=== PATIENT | male | born 1980 | race Caucasian/White ===

== ENCOUNTER 2024-07-06 10:08 | Inpatient (IN) | payer OTHER, SELFPAY ==
[2024-07-06] VITALS (44 sets, daily range): BP systolic 85–168; BP diastolic 7–100; PULSE 82–134; RESP 21–50; TEMP 32–38.4; O2SAT 83–105; BMI 47.9
--- NOTE | ~2024-07-06 | CT_ITS ---
EXAMINATION: CT ANGIOGRAM CHEST CLINICAL INFORMATION: Respiratory failure. Cardiac arrest, dyspnea before cardiac arrest. Intubated. COMPARISON: None available. TECHNIQUE: Multiple axial images were obtained through the chest after the administration of 80 mL of Omnipaque 350 intravenous contrast. Extensive vascular post-processing including two-dimensional and three-dimensional reformatted images were created and reviewed on an independent workstation. This CT examination was performed using dose optimization techniques as appropriate, variously including the following: *Automated exposure control *Adjustment of mA and/or kV according to patient size (this includes techniques or standardized protocols for targeted exams where dose is matched to indication/reason for exam; i.e. extremities or head) *Use of iterative reconstruction technique DLP: 552 mGy-cm FINDINGS: SUPPORT DEVICES: ET tube is positioned just encroaching into the right mainstem bronchus by 5 mm. Retraction of this device 3 cm recommended. NG tube is present, tip in the gastric antrum. This is well positioned. LUNGS: Somewhat limited by respiratory motion artifact. This limits detection of subtle findings. There are small layering pleural effusions with associated passive atelectasis in the abutting lung parenchyma. There is discoid atelectasis in the right midlung, also a small amount in the left midlung. There is vascular engorgement present. Bilateral patchy foci of groundglass attenuation are present with indicating mild interstitial and early alveolar pulmonary edema. Evaluation for nodules is limited by motion. Grossly no significant nodules seen. MEDIASTINUM: Contrast bolus opacification of the pulmonary arterial system is diagnostic. Study is limited by extensive respiratory motion artifact, which limits sensitivity of detection of subsegmental embolic disease. No evidence of central or segmental emboli seen. No evidence of right heart strain. There is evidence of right heart failure with contrast reflux into the IVC and hepatic veins. The main pulmonary artery is enlarged suggesting pulmonary arterial hypertension. There is edema throughout the mediastinal fat planes. There are enlarged low attenuating mediastinal lymph nodes, for example a right paratracheal node measures 1.5 cm in diameter (series 8, image 15). There are additional prevascular, subcarinal, and paratracheal lymph nodes which are enlarged and low attenuating. These are nonspecific but may be a result of chronic right heart failure. There is moderate cardiac enlargement, with predominantly RV and RA enlargement. No pericardial effusion. No evidence of acute aortic syndrome. The aorta is normal in caliber and course. CHEST WALL: No adenopathy or mass. There is diffuse edema in the fat planes consistent with gross anasarca. UPPER ABDOMEN: Diffuse fatty infiltration and hepatomegaly. No focal hepatic abnormality seen. Mild splenomegaly, with AP diameter of 14.5 cm. Mild periceliac edema, nonspecific. Mild adrenal hyperplasia bilaterally. NG tube in the stomach. CT/CT angio chest PE protocol IMPRESSION: 1. ET tube lies just within the right mainstem bronchus. Retraction 3 cm recommended. 2. Well-positioned NG tube. 3. Somewhat limited study for pulmonary embolus due to respiratory motion and patient motion, however no gross central or segmental embolus seen. 4. Moderate cardiomegaly, with evidence of right heart failure, small pleural effusions, low-attenuation mediastinal lymph nodes, mild interstitial pulmonary edema, and diffuse anasarca. 5. There is prominent contrast reflux into the hepatic veins consistent with right heart failure. 6. Patchy areas of atelectasis and mild interstitial/alveolar edema in the lung parenchyma. 7. Enlarged main pulmonary artery suggesting pulmonary arterial hypertension. 8. Hepatomegaly with diffuse fatty infiltration. Mild splenomegaly. Electronically signed by: Naveed Phelan MD 07/06/2024 02:08 PM [facility]
--- NOTE | ~2024-07-06 | CT_ITS ---
EXAMINATION: CT HEAD WITHOUT CONTRAST CLINICAL INFORMATION: Altered mental status, status post cardiac arrest COMPARISON: None available. TECHNIQUE: Contiguous axial imaging was performed from the skull base to vertex without intravenous administration of contrast. This CT examination was performed using dose optimization techniques as appropriate, variously including the following: *Automated exposure control *Adjustment of mA and/or kV according to patient size (this includes techniques or standardized protocols for targeted exams where dose is matched to indication/reason for exam; i.e. extremities or head) *Use of iterative reconstruction technique DLP: 839.57 mGy-cm FINDINGS: There is diffuse sulcal effacement of cerebrum and cerebellum, diffuse abnormal decrease in attenuation of the cerebral parenchyma, loss of franco-white matter differentiation. There is resulting relatively dense falx and tentorial borders There is no midline shift, no abnormal intra- or extra- axial fluid accumulation. Bone window images show no evidence of skull fracture. Small air-fluid level is seen in the left maxillary sinus. CT/CT head/brain wo IV con IMPRESSION: 1. Findings are suggestive of diffuse cytotoxic edema. 2. No intracranial hemorrhage or skull fracture is seen. Electronically signed by: Mary Horta MD 07/06/2024 01:54 PM EST
--- NOTE | ~2024-07-06 | XR_ITS ---
EXAMINATION: XR CHEST CLINICAL INFORMATION: shortness of breath, right sided pain; Intubation. COMPARISON: None available. TECHNIQUE: AP portable view of the chest was obtained. FINDINGS: Endotracheal tube is in place, with tip terminating approximately 2.7 cm above the french, well-positioned. A nasogastric tube appears coiled within the hypopharynx. Tip not seen. No additional support devices. Leads on the chest. There is moderate cardiomegaly. Mediastinal and hilar contours appear normal allowing for AP technique. Engorged vasculature are within the hilar regions and throughout both lungs without overt CHF. No focal consolidation. Linear atelectasis right midlung. Suspect small bilateral effusions with associated mild passive atelectasis. No pneumothorax. Bony and soft tissue structures appear normal. XR/XR chest 1V IMPRESSION: 1. Endotracheal tube in good position. 2. NG tube tip not seen, appears coiled in the hypopharynx. Correlate clinically. 3. Moderate cardiomegaly with vascular congestion throughout both lungs without overt CHF. Right midlung discoid atelectasis. 4. Small bilateral pleural effusions suspected. Electronically signed by: Naveed Phelan MD 07/06/2024 01:53 PM [facility] [place]
--- NOTE | ~2024-07-06 | XR_ITS ---
EXAMINATION: XR CHEST CLINICAL INFORMATION: Organ Donation - per [facility] COMPARISON: None available. TECHNIQUE: Frontal view of the chest was obtained. FINDINGS: The lungs are hypoexpanded with bibasilar streaky atelectasis. Heart size is enlarged with poor vascularity is normal. Position of endotracheal tube is 6.3 cm above the french. Enteric tube tip is in stomach. No gross bony abnormality. XR/XR chest 1V IMPRESSION: 1. Hypoexpanded lungs with bibasilar atelectasis. 2. Cardiomegaly. 3. Endotracheal tube and enteric tube are in satisfactory position. Electronically signed by: Carlos Farfan MD 07/09/2024 08:54 AM EST
--- NOTE | ~2024-07-06 | US_ITS ---
EXAMINATION: US ABDOMEN COMPLETE CLINICAL INFORMATION: [facility] request. COMPARISON: None available. TECHNIQUE: Real-time imaging of the abdominal viscera. FINDINGS: PANCREAS: Visualized portions are unremarkable. ABDOMINAL AORTA: The proximal segment is normal in caliber. The mid and distal segments are obscured by overlying bowel gas. INFERIOR VENA CAVA: The proximal segment normal. The mid and distal segments are obscured by overlying bowel gas. LIVER: The liver is normal in size. The liver contour is normal. Parenchymal echogenicity is normal. No focal hepatic lesion. There is no intrahepatic biliary duct dilatation seen. GALLBLADDER: The gallbladder is physiologically distended without evidence of stones, sludge, polyps, wall thickening or pericholecystic fluid. COMMON BILE DUCT: Normal in caliber measuring 0.3 cm in diameter. RIGHT KIDNEY: No hydronephrosis. No renal calculi or focal parenchymal lesions. The kidney measures 11.0 cm in maximum dimension. LEFT KIDNEY: No hydronephrosis. No renal calculi or focal parenchymal lesions. The kidney measures 11.6 cm in maximum dimension. SPLEEN: The spleen measures 12.8 cm in maximum dimension. FREE FLUID: None. US/US abdomen complete IMPRESSION: Unremarkable abdominal ultrasound. Electronically signed by: Argenis Mei MD 07/09/2024 01:53 PM EST
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
--- NOTE | 2024-07-06 10:33 | ECG_ITS ---
Test Reason : CARDIAC ARREST Blood Pressure : / mmHG Vent. Rate : 108 BPM Atrial Rate : 107 BPM P-R Int : 138 ms QRS Dur : 086 ms QT Int : 278 ms P-R-T Axes : 171 -69 079 degrees QTc Int : 372 ms Wide complex rhythm suspect electrolyte/metabolic issues Left axis deviation Abnormal ECG No previous ECGs available Referred By: Kiko Pena Electronically Signed By:Avinash Mercado
--- NOTE | 2024-07-06 10:34 | ECG_ITS ---
Test Reason : CARDIAC ARREST Blood Pressure : / mmHG Vent. Rate : 112 BPM Atrial Rate : 060 BPM P-R Int : 196 ms QRS Dur : 094 ms QT Int : 302 ms P-R-T Axes : 019 -74 094 degrees QTc Int : 412 ms Wide complex rhythm Suspect hyperkalemia/metabolic issues Left axis deviation Abnormal ECG When compared with ECG of 06-JUL-2024 10:33, No significant changes seen Referred By: Kiko Pena Electronically Signed By:Avinash Mercado
--- NOTE | 2024-07-06 10:35 | ECG_ITS ---
Test Reason : CARDIAC ARREST Blood Pressure : / mmHG Vent. Rate : 091 BPM Atrial Rate : 091 BPM P-R Int : 184 ms QRS Dur : 082 ms QT Int : 428 ms P-R-T Axes : 000 -81 024 degrees QTc Int : 526 ms Wide complex rhythm Left axis deviation Low voltage QRS Prolonged QT Abnormal ECG When compared with ECG of 06-JUL-2024 10:34, No significant changes seen Referred By: Kiko Pena Electronically Signed By:Avinash Mercado
[2024-07-06] MEDS: Norepinephrine Bitartrate/D5W 8 MG/250 ML PLAST..BAG 14.6 MG IVCONT (10:42)
--- NOTE | 2024-07-06 10:42 | ECG_ITS ---
Test Reason : CARDIAC ARREST Blood Pressure : / mmHG Vent. Rate : 093 BPM Atrial Rate : 087 BPM P-R Int : 164 ms QRS Dur : 106 ms QT Int : 480 ms P-R-T Axes : 054 268 054 degrees QTc Int : 596 ms Poor data quality, interpretation may be adversely affected Wide complex rhythm consider hyperkalemia Prolonged QT Abnormal ECG When compared with ECG of 06-JUL-2024 10:35, No significant changes seen Referred By: Kiko Pena Electronically Signed By:Avinash Mercado
--- NOTE | 2024-07-06 10:43 | ECG_ITS ---
Test Reason : CARDIAC ARREST Blood Pressure : / mmHG Vent. Rate : 086 BPM Atrial Rate : 086 BPM P-R Int : 178 ms QRS Dur : 096 ms QT Int : 466 ms P-R-T Axes : 071 268 047 degrees QTc Int : 557 ms Normal sinus rhythm with sinus arrhythmia Wide QRS-consider hyperkalemia Prolonged QT Abnormal ECG When compared with ECG of 06-JUL-2024 10:42, No significant changes seen Referred By: Kiko Pena Electronically Signed By:Avinash Mercado
--- NOTE | 2024-07-06 10:45 | ECG_ITS ---
Test Reason : CARDIAC ARREST Blood Pressure : / mmHG Vent. Rate : 081 BPM Atrial Rate : 087 BPM P-R Int : 226 ms QRS Dur : 162 ms QT Int : 440 ms P-R-T Axes : 040 233 018 degrees QTc Int : 511 ms Sinus rhythm with sinus arrhythmia with 1st degree A-V block Right bundle branch block Septal infarct , age undetermined Inferior infarct (cited on or before 06-JUL-2024) T wave abnormality, consider lateral ischemia Abnormal ECG When compared with ECG of 06-JUL-2024 10:43, WA interval has increased Right bundle branch block is now Present Borderline criteria for Lateral infarct are no longer Present Referred By: Kiko Pena Electronically Signed By:Avinash Mercado
--- NOTE | 2024-07-06 10:48 | ECG_ITS ---
Test Reason : CARDIAC ARREST Blood Pressure : / mmHG Vent. Rate : 079 BPM Atrial Rate : 079 BPM P-R Int : 204 ms QRS Dur : 172 ms QT Int : 410 ms P-R-T Axes : 036 213 010 degrees QTc Int : 470 ms Normal sinus rhythm Right bundle branch block Septal infarct (cited on or before 06-JUL-2024) Inferior infarct (cited on or before 06-JUL-2024) Abnormal ECG When compared with ECG of 06-JUL-2024 10:45, Serial changes of Septal infarct Present Referred By: Kiko Pena Electronically Signed By:Avinash Mercado
--- NOTE | 2024-07-06 10:55 | ECG_ITS ---
Test Reason : CARDIAC ARREST Blood Pressure : / mmHG Vent. Rate : 081 BPM Atrial Rate : 081 BPM P-R Int : 170 ms QRS Dur : 156 ms QT Int : 386 ms P-R-T Axes : 063 202 011 degrees QTc Int : 448 ms Normal sinus rhythm Right bundle branch block Abnormal ECG When compared with ECG of 06-JUL-2024 10:48, Criteria for Septal infarct are no longer Present Serial changes of Inferior infarct Present Referred By: Kiko Pena Electronically Signed By:Avinash Mercado
--- NOTE | 2024-07-06 10:58 | ECG_ITS ---
Test Reason : CARDIAC ARREST Blood Pressure : / mmHG Vent. Rate : 083 BPM Atrial Rate : 083 BPM P-R Int : 166 ms QRS Dur : 156 ms QT Int : 386 ms P-R-T Axes : 066 200 010 degrees QTc Int : 453 ms Sinus rhythm with Fusion complexes Right bundle branch block Abnormal ECG When compared with ECG of 06-JUL-2024 10:55, Fusion complexes are now Present Referred By: Kiko Pena Electronically Signed By:Avinash Mercado
[2024-07-06] MEDS: Amiodarone HCL 900 MG in 0.9 % Sodium Chloride 500 ML 34.53 MG IVCONT (11:00)
--- NOTE | 2024-07-06 11:08 | PC.RT ---
Pt came in via EMS in active cardiac arrest. Pt was intubated in the field by EMS w/ 8.0 ETT sitting 27cm @lips. Pt skin pale, blue, and dusky. SATs reading between 40's-60's w/ bag ventilation 100% FIO2. CPR and ACLS level care being provided to pt by ER staff. RT assessed chest rise and bilateral breath sounds, loud breath sounds noted on the right with diminished sounds on the left. Pt abdomen severely distended and hilda w/ breaths. MD placed NG tube w/ scant amount of blood returned, no improvement in ventilation status. RT pulled ETT back to 24 cm @ lip. Loud bilateral breath sounds noted post move. SATs improved to 80's-90's. Albuterol 10mg given through ETT per MD request. After staff noted ROSC, Pt was placed on mechanical ventilation as documented. Pt ernst well. Will continue to monitor.
--- NOTE | 2024-07-06 11:12 | ECG_ITS ---
Test Reason : CARDIAC ARREST Blood Pressure : / mmHG Vent. Rate : 091 BPM Atrial Rate : 091 BPM P-R Int : 138 ms QRS Dur : 104 ms QT Int : 342 ms P-R-T Axes : 063 161 036 degrees QTc Int : 420 ms Normal sinus rhythm Right axis deviation Pulmonary disease pattern Abnormal ECG When compared with ECG of 06-JUL-2024 10:58, Fusion complexes are no longer Present Right bundle branch block is no longer Present Referred By: Kiko Pena Electronically Signed By:Avinash Mercado
[2024-07-06 11:14] LABS: Hematocrit 48.7 % (42.0-52.0); Hemoglobin 15.1 g/dl (14.0-18.0); Mean Corpuscular Hemoglobin 32.2 pg (27.0-33.0); Mean Corpuscular Volume 103.8 fL (80.0-98.0); Mean Platelet Volume 10.8 fL (9.4-12.4); Platelet Count 217 X10*3/uL (160-400); Red Blood Count 4.69 X10*6/uL (4.60-5.80); Red Cell Distribution Width 16.5 % (11.0-16.0)
[2024-07-06 11:15] LABS: NRBC Pct Auto 2.3 /100WBC (0.0-0.2); WBC ABN SCTR FOR CBC 1
[2024-07-06 11:22] LABS: Venous Blood Gas Refer to POC result
[2024-07-06 11:23] LABS: Baso%MD 0.9 %; Eos%MD 0.3 %; IG%MD 11.7 %; Mono%MD 5.9 %; Neut%MD 61.2 %; White Blood Count 13.6 X10*3/uL (4.8-10.8)
[2024-07-06 11:23] LABS: VBG Base Excess -14.7 mmol/L; VBG HCO3 20 mmol/L (22-26); VBG pCO2 100 mmHg; VBG pH 6.91 (7.32-7.43); VBG pO2 76 mmHg
[2024-07-06 11:29] LABS: INTERNATIONAL NORM RATIO 1.3 (0.9-1.1); Prothrombin Time 15.7 SEC (10.9-12.4)
[2024-07-06 11:30] LABS: Lactic Acid 12.5 mmol/L (0.5-2.0)
[2024-07-06] MEDS: fentaNYL citrate/NS 1,000 MCG/100 ML PLAST..BAG 2.5 MCG IVCONT (11:30)
[2024-07-06 11:32] LABS: Appearance Urine Clear; Color Urine Dark Yellow; Glucose Urine UA Negative (Negative); Leukocyte Esterase Urine Negative (Negative); Nitrite Urine Negative (Negative); Specific Gravity - Urine 1.025 (1.005-1.025); UMIC TRIGGER UACC YES; Urine Blood Small (1+) (Negative); Urine Ketones 15 mg/dL (Negative); Urine Protein 100 (2+) mg/dL (Neg-Trace)
[2024-07-06 11:41] LABS: Amphetamine Screen Urine Not Detected (Not Detect); Barbiturates, Urine Not Detected (Not Detect); Benzodiazepines Screen Urine Not Detected (Not Detect); Buprenorphine Scr Not Detected (Not Detect); Cannabinoid Screen Urine Not Detected (Not Detect); Cocaine Screen Urine Not Detected (Not Detect); Fentanyl, urine Not Detected (Not Detect); Methadone Screen, Urine Positive (Not Detect); Opiate Screen Urine Not Detected (Not Detect); Oxycodone Screen Urine Not Detected (Not Detect); Phencyclidine Screen Urine Not Detected (Not Detect)
[2024-07-06 11:42] LABS: Bacteria Urine None Seen (None Seen); Squamous Epithelial Cell Urine 0-2 /HPF (0-2); WBC Urine 0-5 /HPF (0-5)
[2024-07-06 11:45] LABS: Neutrophils Percent Manual 67 % (45-73)
[2024-07-06] MEDS: Lactated Ringers 1,000 ML 999 ML IV (11:45)
[2024-07-06 11:46] LABS: Troponin-I High Sensitivity 65.6 ng/L (<3.5-35.0)
[2024-07-06 11:48] LABS: Atypical Lymph Absolute Manual 0.1 x10*3/uL; Atypical Lymphs Percent Manual 1 % (0-6); Band Neutrophils Percent 11 % (3-5); Lymphocytes Absolute Manual 1.5 X10*3/uL (1.2-4.9); Lymphocytes Percent Manual 11 % (20-40); Metamyelocytes Absolute 0.8 X10*3/uL; Metamyelocytes Percent 6 %; Monocytes Absolute Manual 0.5 X10*3/uL (0.1-1.2); Monocytes Percent Manual 4 % (2-11); Neutrophils Absolute Manual 10.6 X10*3/uL (2.0-8.3); Nucleated Red Blood Cells 2 /100WBC (0-0)
[2024-07-06 11:49] LABS: Macrocytosis 2+ (15-30) /OIF; Platelet Estimate NORMAL (NORMAL); Platelet Morphology Comment NORMAL; RBC Morphology NOTED
[2024-07-06 11:51] LABS: Alanine Aminotransferase 212 U/L (0-40); Albumin Level 3.2 g/dL (3.5-5.0); Alkaline Phosphatase 191 U/L (39-117); Anion Gap 25 (12-20); Aspartate Amino Transferase 373 U/L (5-37); Bilirubin Direct 0.7 mg/dL (0.0-0.5); Bilirubin Total 1.5 mg/dL (0.0-1.0); Blood Urea Nitrogen 11 mg/dL (9-16); Calcium 9.7 mg/dL (8.4-10.2); Carbon Dioxide 22 mmol/L (22-29); Chloride 85 mmol/L (96-108); Creatinine Clr Calc Pharmacy 176.8; Estimated Glomerular Filt Rate > 60; Ethanol < 10 mg/dL; Glucose Random 81 mg/dL (60-115); Lipase 21 U/L (8-78); Magnesium 3.8 mg/dL (1.6-2.6); Potassium 5.1 mmol/L (3.3-5.1); Sodium 127 mmol/L (135-145); Total Protein 6.1 g/dL (6.5-8.0)
[2024-07-06 12:16] LABS: Glucose, Whole Blood 109 mg/dL (60-115)
[2024-07-06] MEDS: Midazolam HCl/NS 50 MG/50 ML PLAST..BAG IVCONT ×2 (12:30→12:53)
[2024-07-06] MEDS: iohexoL 350 MG/ML 100 ML INFUS..BTL IV (12:46)
[2024-07-06] MEDS: Midazolam HCl/PF 2 MG/2 ML VIAL 4 MG IVPUSH (12:54)
[2024-07-06 13:06] LABS: Reflex Lactate? Lactic Acid Added
[2024-07-06 13:15] LABS: ABG Base Excess -5.3 mmol/L; ABG HCO3 25 mmol/L (22-26); ABG pCO2 74 mmHg (32-45); ABG pH 7.14 (7.35-7.45); ABG pO2 110 mmHg (83-108)
[2024-07-06] MEDS: propofoL 1,000 MG/100 ML VIAL 28.03 MG IVCONT (13:26)
[2024-07-06] MEDS: Albuterol Sulfate 7.5 MG, Albuterol/Iprat 2.5/0.5MG 3 ML 3 ML INHALE (13:43)
[2024-07-06] MEDS: Piperacillin Sodium/Tazobactam 4.5 GM in 0.9 % Sodium Chloride 100 ML IV (14:04)
[2024-07-06 14:51] LABS: ~Lactic Acid-LAB USE ONLY 5.9 mmol/L (0.5-2.0)
--- NOTE | 2024-07-06 15:12 | PC.NURSE ---
Pt comes to ED via EMS as cardiac arrest from Methadone clinic. Active CPR upon arrival. Please see Resuscitation Report in Pts hard chart for details leading up to ROSC. Upon stabilization, Femoral Central Line placed by Dr. Pena. Blood labs drawn and sent for processing. Merida catheter placed--urine spec collected and sent for analysis. Continuous VS monitoring in place. Xray to beside for imaging. This RN, DEXTER Guzman, and RT accompany Pt to CT for imaging--no complications. Please refer to MAR for medications administered and correlating titrations. Pts mother arrives to facility; Dr. Pena meets with to discuss Pts status. Pt remains in ED under constant pheresis nurse. Pt transported to ICU with DEXTER Ansari, DEXTER Guzman, RT, and Transport
--- NOTE | 2024-07-06 15:12 | PHA.MEDREC ---
Addendum entered by Charmaine Su RPh 07/06/24 15:33: Med rec reviewed by [facility]. Original Note: Pharmacy Consult ? Medication Reconciliation Pharmacy has completed the medication reconciliation. Spoke with patients mother and she was able to confirm that the patient is only taking Ibuprofen 200mg tabs 3 tabs daily and Tylenol 500mg tabs 1 tab daily. She also states he is taking Methadone and they were at the methadone clinic today when the patient had his episode but she does not the dose of what he is taking only knows that Its a higher dose . She confirmed her son took his medications last night and didn't take any today that she knows of.
[2024-07-06] MEDS: Lidocaine HCl/PF 100 MG/5 ML SYRINGE 90 MG IV (15:28)
[2024-07-06] MEDS: propofoL 1,000 MG/100 ML VIAL 37.37 MG IVCONT ×4 (15:40→23:43)
[2024-07-06] MEDS: Cisatracurium Besylate 20 MG/10 ML VIAL IVPUSH (15:43)
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
[2024-07-06 16:13] LABS: Reflex Lactate? 2 Y
[2024-07-06 16:19] LABS: MANUAL DIFF FLAG NO
[2024-07-06 16:22] LABS: Basophils Absolute Auto 0.1 X10*3/uL (0.0-0.2); Basophils Percent Auto 0.3 % (0-2); Eosinophils Percent Auto 0.1 % (0-4); Hematocrit 42.7 % (42.0-52.0); Imm Gran Abs Auto 0.44 X10*3/uL (0.00-0.03); Imm Gran Pct Auto 2.2 % (0.0-0.4); Lymphocytes Absolute Auto 0.8 X10*3/uL (1.2-4.9); Lymphocytes Percent Auto 3.9 % (20-40); Mean Corpuscular HGB Conc 32.8 g/dl (31.0-36.0); Mean Corpuscular Hemoglobin 32.3 pg (27.0-33.0); Mean Corpuscular Volume 98.6 fL (80.0-98.0); Monocytes Absolute Auto 1.2 X10*3/uL (0.1-1.2); Monocytes Percent Auto 5.9 % (2-11); NRBC Pct Auto 0.6 /100WBC (0.0-0.2); Neutrophils Absolute Auto 17.3 x10*3/uL (2.0-8.3); Neutrophils Percent Auto 87.6 % (45-73); Platelet Count 214 X10*3/uL (160-400); Red Blood Count 4.33 X10*6/uL (4.60-5.80); Red Cell Distribution Width 16.2 % (11.0-16.0); White Blood Count 19.7 X10*3/uL (4.8-10.8)
[2024-07-06 16:25] LABS: VBG Base Excess 5.9 mmol/L; VBG HCO3 37 mmol/L (22-26); VBG pCO2 89 mmHg; VBG pH 7.22 (7.32-7.43); VBG pO2 58 mmHg
[2024-07-06 16:27] LABS: Venous Blood Gas Refer to POC result
[2024-07-06 16:40] LABS: Alanine Aminotransferase 700 U/L (0-40); Albumin Level 2.9 g/dL (3.5-5.0); Alkaline Phosphatase 205 U/L (39-117); Anion Gap 20 (12-20); Aspartate Amino Transferase 1576 U/L (5-37); Bilirubin Total 2.1 mg/dL (0.0-1.0); Blood Urea Nitrogen 15 mg/dL (9-16); Calcium 8.3 mg/dL (8.4-10.2); Carbon Dioxide 26 mmol/L (22-29); Chloride 83 mmol/L (96-108); Estimated Glomerular Filt Rate > 60; Glucose Random 138 mg/dL (60-115); Magnesium 2.3 mg/dL (1.6-2.6); Phosphorus 5.6 mg/dL (2.7-4.5); Potassium 4.5 mmol/L (3.3-5.1); Sodium 124 mmol/L (135-145); Total Protein 5.5 g/dL (6.5-8.0)
[2024-07-06 16:43] LABS: B Type Natriuretic Peptide 660 pg/mL (<100)
[2024-07-06 16:50] LABS: Lactic Acid 6.4 mmol/L (0.5-2.0)
[2024-07-06 17:05] LABS: Troponin-I High Sensitivity 11747.8 ng/L (<3.5-35.0)
[2024-07-06 17:47] LABS: ~Lactic Acid-LAB USE ONLY 6.1 mmol/L (0.5-2.0)
[2024-07-06 18:18] LABS: Reflex Lactate? Lactic Acid Added
[2024-07-06 19:09] LABS: ~Lactic Acid-LAB USE ONLY 5.5 mmol/L (0.5-2.0)
[2024-07-06] MEDS: vancomycin/NS 2,000 MG/500 ML PLAST..BAG 250 MG IV (19:31)
[2024-07-06 20:04] LABS: VBG Base Excess 2.5 mmol/L; VBG HCO3 28 mmol/L (22-26); VBG pCO2 45 mmHg; VBG pH 7.39 (7.32-7.43); VBG pO2 40 mmHg
[2024-07-06 20:04] LABS: Venous Blood Gas Refer to POC result
--- NOTE | 2024-07-06 20:32 | HO.HCP_ITS ---
Health Care Proxy Invocation Health Care Proxy Declaration: I, _Herbie Hightower , on the date cited below, have determined that, __Lv Lipscomb__, lacks the capacity to make or communicate, informed health care decision. This determination is made in accordance with accepted standards of medical judgment and pursuant to [place] 201[place], the [place] Health Care Proxy Law. The cause, nature, extent and probable duration of the patient's inapacity are described below: Cause: Intubated post Cardiac arrest with successful, but prolonged resuscitation, cerebral edema Nature:Organic,post cardiac arrest Extent:severe Probable Duration of Patient's Incapacity: unable to determine
--- NOTE | 2024-07-06 20:37 | PM.EVENT ---
Documented by User: Herbie Hightower NP 07/06/24 20:40 Event Note Date of Service: 07/06/24 Event Note: Patient mother/ HCP Karina Lipscomb and sister Elise at bedside, earlier attending Dr Martin had informed them of patient clinical status and goals of care. They both have decided to change code status to DNR. Code status changed to reflect family wishes. Time Spent With Patient Time: Total time managing care of this patient today ____ minutes. Documented by User: Billy Martin MD 07/09/24 10:21 Event Note Date of Service: 07/09/24
[2024-07-06 20:44] LABS: Reflex Lactate? 2 Y
[2024-07-06] MEDS: Heparin Sodium,Porcine 5,000 UNIT/ML VIAL 5000 UNIT SUBCUT (21:13)
[2024-07-06] MEDS: Chlorhexidine Gluc Oral Rinse 15 ML MOUTHWASH BUCCAL (21:13)
[2024-07-06 21:42] LABS: Cancel Lactic Acid Canceled
[2024-07-06] MEDS: Furosemide 40 MG/4 ML VIAL IVPUSH (22:42)
[2024-07-06] MEDS: Midazolam HCl/PF 2 MG/2 ML VIAL IVPUSH (22:47)
[2024-07-06 23:01] LABS: VBG HCO3 31 mmol/L (22-26); VBG pCO2 52 mmHg; VBG pH 7.38 (7.32-7.43); VBG pO2 33 mmHg
[2024-07-06] MEDS: Acetaminophen 1,000 MG/100 ML PIGGYBACK 400 MG IV (23:26)
[2024-07-06] MEDS: Norepinephrine Bitartrate/D5W 8 MG/250 ML PLAST..BAG 37.95 MG IVCONT (23:44)
[2024-07-06 23:53] LABS: Venous Blood Gas Refer to POC result
[2024-07-07] VITALS (35 sets, daily range): BP systolic 106–134; BP diastolic 54–74; PULSE 78–98; RESP 20–25; TEMP 34.7–39.6; O2SAT 88–94; BMI 47.8
--- NOTE | 2024-07-07 01:06 | HO.SKINPHOTO ---
Location: R Foot Category: Stage: Length: Width: Depth: cm Location: L Foot Category: Stage: Length: Width: Depth: cm
[2024-07-07] MEDS: propofoL 1,000 MG/100 ML VIAL 37.37 MG IVCONT ×3 (02:26→07:03)
[2024-07-07] MEDS: Norepinephrine Bitartrate/D5W 8 MG/250 ML PLAST..BAG 37.95 MG IVCONT (05:28)
[2024-07-07] MEDS: Heparin Sodium,Porcine 5,000 UNIT/ML VIAL 5000 UNIT SUBCUT ×3 (05:28→20:30)
[2024-07-07 05:29] LABS: MANUAL DIFF FLAG NO
[2024-07-07 05:31] LABS: Basophils Percent Auto 0.2 % (0-2); Eosinophils Percent Auto 0.1 % (0-4); Hematocrit 41.1 % (42.0-52.0); Hemoglobin 14.1 g/dl (14.0-18.0); Imm Gran Abs Auto 0.12 X10*3/uL (0.00-0.03); Imm Gran Pct Auto 0.8 % (0.0-0.4); Lymphocytes Absolute Auto 2.7 X10*3/uL (1.2-4.9); Lymphocytes Percent Auto 18.1 % (20-40); Mean Corpuscular HGB Conc 34.3 g/dl (31.0-36.0); Mean Corpuscular Hemoglobin 32.4 pg (27.0-33.0); Mean Corpuscular Volume 94.5 fL (80.0-98.0); Mean Platelet Volume 10.3 fL (9.4-12.4); Monocytes Absolute Auto 0.8 X10*3/uL (0.1-1.2); Monocytes Percent Auto 5.1 % (2-11); Neutrophils Absolute Auto 11.1 x10*3/uL (2.0-8.3); Neutrophils Percent Auto 75.7 % (45-73); Platelet Count 226 X10*3/uL (160-400); Red Blood Count 4.35 X10*6/uL (4.60-5.80); White Blood Count 14.7 X10*3/uL (4.8-10.8)
[2024-07-07 05:31] LABS: Venous Blood Gas Refer to POC result
[2024-07-07 05:45] LABS: VBG HCO3 38 mmol/L (22-26); VBG pCO2 54 mmHg; VBG pH 7.45 (7.32-7.43); VBG pO2 45 mmHg
[2024-07-07 05:52] LABS: Alanine Aminotransferase 794 U/L (0-40); Albumin Level 2.6 g/dL (3.5-5.0); Alkaline Phosphatase 189 U/L (39-117); Anion Gap 17 (12-20); Aspartate Amino Transferase 1670 U/L (5-37); Bilirubin Total 1.1 mg/dL (0.0-1.0); Blood Urea Nitrogen 22 mg/dL (9-16); Carbon Dioxide 26 mmol/L (22-29); Chloride 83 mmol/L (96-108); Creatinine Clr Calc Pharmacy 70.9; Estimated Glomerular Filt Rate 36; Glucose Random 95 mg/dL (60-115); Magnesium 1.9 mg/dL (1.6-2.6); Phosphorus 1.4 mg/dL (2.7-4.5); Potassium 4.5 mmol/L (3.3-5.1); Sodium 121 mmol/L (135-145); Total Protein 5.1 g/dL (6.5-8.0)
--- NOTE | 2024-07-07 06:09 | PC.NURSE ---
2229 - when turning and repositioning pt, spO2 dropping to 70s requiring manual bagging - RT and RESHIPPING CLERK at bedside 2244 - placed back on vent, settings adjusted by RT, peep increased to 15, spO2 continues at 85-86% - see vent assessment. Lasix 40 mg administered with no effect, pt anuric - RESHIPPING CLERK aware?
--- NOTE | 2024-07-07 07:00 | CA_ITS ---
Transthoracic Echocardiogram Patient (Last, First, Middle): Lv Lipscomb T Gender: Male Date of : 1980 Age: 43 Procedure Date: 07/07/2024 Procedure Type: Transthoracic Echocardiogram Location: ICU Height: 162.56 cm Weight: 155.58 kg BSA: 2.46 m2 Heart Rate: 93 bpm BP: 121 / 62 mmHg Manager Food Safety: SB Referring MD: Billy Martin MD Symptoms: Status post cardiac arrest Study Quality: Fair ECG Rhythm: Sinus Conclusions: - Normal left ventricular size and systolic function. The visually estimated ejection fraction is between 55-60%. Regional wall motion abnormalities can not be excluded due to suboptimal endocardial definition. Diastolic function is indeterminate on the basis of available data. - Severely increased right ventricular cavity size. There is severely decreased right ventricular systolic function. - Significantly elevated right atrial pressure. Findings Procedure Information Contrast agent, definity, is being given per protocol without apparent complications. The quality of the study was technically difficult. The study quality is limited by patients body habitus and lung artifact. Left Ventricle Normal left ventricular size and systolic function. The visually estimated ejection fraction is between 55-60%. Regional wall motion abnormalities can not be excluded due to suboptimal endocardial definition. Diastolic function is indeterminate on the basis of available data. Right Ventricle Severely increased right ventricular cavity size. There is severely decreased right ventricular systolic function. Atria The left atrium is likely dilated. The right atrium is moderately dilated. Aortic Valve Normal aortic valve structure and function. There is no aortic valve stenosis. There is no aortic valve regurgitation. Mitral Valve Likely normal mitral valve structure and function. There is no mitral valve regurgitation. There is no mitral valve stenosis. Pulmonic Valve The pulmonic valve was not well visualized. Tricuspid Valve The tricuspid valve was not well visualized. Tricuspid regurgitation envelope is inadequate for calculation of right ventricular systolic pressure. Significantly elevated right atrial pressure. Great Vessels The aorta was not well visualized. The visualized portions of the pulmonary artery and branches are normal. Venous The inferior vena cava is dilated and does not collapse with inspiration. Pericardium/Pleural There is no evidence of pericardial effusion. Prior Study Comparison No prior study available for comparison. Measurements 2D Linear Measurements IVSd: 1.29 0.6-0.9/0.6-1.0 cm LVIDd: 4.96 3.9-5.3/4.2-5.9 cm LVIDd Index: 2.02 2.4-3.2/2.2-3.1 cm/m2 LVIDs: 3.58 2.0-3.6 cm LVPWd: 0.62 0.7-1.1 cm LA Diam: 3.90 2.7-3.8/3.0-4.0 cm LAIDs Index: 1.59 1.5-2.3 cm/m2 LV Mass: 209.87 67-162/88-224 g LV Mass Index: 85.31 43-95/49-115 g/m2 LVOT Diam: 2.10 3.0+(-)1.3 cm 2D Systolic Function EF 4C: 35.90 >55% EF 2C: 57.90 >55% EF BiP: 45.90 >55% Mitral Valve MV Pk E: 0.42 MV PK A: 0.59 MV Decel Time: 194.00 E/A: 0.70 E'Lateral: 5.98 E'Medial: 3.15 E/E' Med: 13.50 E/E' Lat: 7.10 PHT: 57.00 MVA PHT: 3.86 Decel Gordon: 2.19 Aortic Valve AoV Pk Familia: 1.12 AoV Pk Grad: 5.00 KASH: 2.80 LVOT LVOT Pk Familia: 0.84 LVOT Mn Familia: 0.66 LVOT VTI: 0.12 LVOT Pk Grad: 3.00 LVOT Mn Grad: 2.00 LVOT Diam: 2.10 LVOT Area: 3.46 Diastolic Function MV Pk E: 0.42 MV Pk A: 0.59 E/A: 0.70 E'Medial: 3.15 E/E' Med: 13.50 E' Laterial: 5.98 E/E' Lat: 7.10 Right Ventricle TAPSE (mm): 11.80 TVS' Familia: 8.67 Tricuspid Valve RA Press: 15.00 Great Vessels Aorta Sinus of Valsalva: 2.90 2.0-3.5 cm Ao Asc: 3.00 2.1-3.4 cm Pulmonary Valve PV Pk Familia: 0.97 Peak PV Grad: 4.00 Updated in Other Vendor System with Status of Final Avinash Mercado MD electronically signed on 07/07/2024 2:47:39 PM with status of Final
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
[2024-07-07] MEDS: Calcium Chloride 1 GM/10 ML SYRINGE IVPUSH (08:43)
[2024-07-07] MEDS: Sodium Bicarbonate 8.4% 50 MEQ/50 ML SYRINGE IVPUSH (08:43)
[2024-07-07] MEDS: Albumin Human 25 % 50 ML 100 ML IV (08:44)
[2024-07-07] MEDS: Potassium Phosphate/NS 15 MMOL/250 ML PLAST..BAG 62.5 MMOL IV (08:44)
[2024-07-07] MEDS: Famotidine/PF 20 MG/2 ML VIAL IVPUSH (08:45)
[2024-07-07] MEDS: Chlorhexidine Gluc Oral Rinse 15 ML MOUTHWASH BUCCAL ×3 (08:45→20:31)
--- NOTE | 2024-07-07 09:16 | P.CDIM_ITS ---
PROVIDER RESPONSE TEXT: To clarify, the appropriate diagnosis supported by the clinical indicators: Hyponatremia: Probable QUERY TEXT: PHYSICIAN'S DOCUMENTATION REQUEST Date of Query: 07/07/2024 09:07 AM EST Patient Name: Lv Lipscomb Admit Date: 07/06/2024 Dear Stefanie Guerra MD, A review of the medical record indicates additional documentation may be needed. Please review below and update the documentation accordingly. Clinical Indicators: LABS: sodium 121 L fluids Based on the above, is there a diagnosis that correlates with these findings: Hyponatremia possible, probable, suspected etc. Labs indicate a diagnosis of (please specify) Other (explain) Clinically unable to determine (explain) Thank you, Jennifer Grijalva, CCS, CDIS Use of terms such as suspected, likely, concern for, or probable (associated with a specific diagnosi s that is being evaluated, monitored, or treated as if it exists) are acceptable and can be coded in the inpatient se tting, when documented at the time of discharge. Please use your independent medical judgment in providing your response. THIS QUERY IS PART OF THE PERMANENT MEDICAL RECORD
--- NOTE | 2024-07-07 09:24 | P.CDIM_ITS ---
PROVIDER RESPONSE TEXT: To clarify, the appropriate diagnosis supported by the clinical indicators: Other (explain): Unknown QUERY TEXT: PHYSICIAN'S DOCUMENTATION REQUEST Date of Query: 07/07/2024 09:18 AM EST Patient Name: Lv Lipscomb Admit Date: 07/06/2024 Dear Stefanie Guerra MD, A review of the medical record indicates additional documentation may be needed. Please review below and update the documentation accordingly. Clinical Indicators: ICU progress note dated 07/07 - CT suggestive of right heart failure. BNP [address] Clarify which of the following accurately represents the acuity of the Right heart failure: Possible options might include: Acute Acute on chronic Other (explain) Clinically unable to determine (explain) Thank you, Jennifer Grijalva, CCS, CDIS Use of terms such as suspected, likely, concern for, or probable (associated with a specific diagnosi s that is being evaluated, monitored, or treated as if it exists) are acceptable and can be coded in the inpatient se tting, when documented at the time of discharge. Please use your independent medical judgment in providing your response. THIS QUERY IS PART OF THE PERMANENT MEDICAL RECORD
[2024-07-07] MEDS: Amiodarone HCL 900 MG in 0.9 % Sodium Chloride 500 ML 17.27 MG IVCONT (09:40)
[2024-07-07] MEDS: propofoL 1,000 MG/100 ML VIAL 28.03 MG IVCONT (09:40)
--- NOTE | 2024-07-07 11:01 | MHC.CM.PN ---
EMR REVIEWED, PT REMAINS INTUBATED AND SEDATED IN ICU. CM WILL FOLLOW FOR PLAN.
--- NOTE | 2024-07-07 11:39 | ECG_ITS ---
Test Reason : QTc Monitoring Blood Pressure : / mmHG Vent. Rate : 079 BPM Atrial Rate : 079 BPM P-R Int : 132 ms QRS Dur : 098 ms QT Int : 488 ms P-R-T Axes : 028 060 064 degrees QTc Int : 559 ms Normal sinus rhythm Low voltage QRS Nonspecific ST abnormality Prolonged QT Abnormal ECG When compared with ECG of 06-JUL-2024 11:12, Non-specific change in ST segment in Inferior leads QT has lengthened Referred By: Kiko Pena Electronically Signed By:Avinash Mercado
[2024-07-07] MEDS: Norepinephrine Bitartrate/D5W 8 MG/250 ML PLAST..BAG 32.11 MG IVCONT (11:48)
--- NOTE | 2024-07-07 12:14 | P.CNNE_ITS ---
History of Present Illness Data of Consult Service Date: 07/07/24 Primary Care Provider: Unknown Physician HPI Reason for consult: Encephalopathy 43 years old man who had cardiac arrest outside the hospital after which CPR was done probably for an hour and he was brought to hospital and intubated. Initial head CT revealed quite significant abnormalities and this consultation was requested for possible anoxic injury. He was intubated and not responsive. There was no evidence of seizure. Review of Systems 2 Review of Systems: Could not be done with him PMFSH Social History Social History Household Members: Unknown / Unable to assess Housing: Unknown / Unable to assess Do you presently have visiting nurse or other home services: No Patient Tobacco Use Status: Tobacco use Unknown Meds Allergies Allergy/AdvReac Type Severity Reaction Status Date / Time No Known Allergies Allergy Verified 07/06/24 12:29 Active Medications: Current Medications Chlorhexidine Gluconate (Chlorhexidine Gluc Oral Rinse 15 Ml Mouthwash) 15 ml [facility] Last Admin: 07/07/24 08:45 Dose: 15 ml Famotidine (Famotidine/Pf 20 Mg/2 Ml Vial) 20 mg IVPUSH DAILY [facility] Last Admin: 07/07/24 08:45 Dose: 20 mg Heparin Sodium (Porcine) (Heparin Sodium,Porcine 5,000 Unit/Ml Vial) 5,000 unit SUBCUT Q8H [facility] Last Admin: 07/07/24 05:28 Dose: 5,000 unit Hydromorphone HCl (Hydromorphone Hcl 0.5 Mg/0.5 Ml Syringe) 0.25 mg IVPUSH Q2H PRN; Protocol PRN Reason: Ventilator synchrony Norepinephrine Bitartrate (Levophed) 8 mg in 250 mls @ 0 mls/hr IVCONT .Q0M [facility]; Protocol Last Admin: 07/07/24 11:48 Dose: 0.11 mcg/kg/min, 32.11 mls/hr Amiodarone HCl 900 mg/ Sodium (Chloride) 518 mls @ 34.533 mls/hr IVCONT .Q15H1M [facility]; Protocol Last Admin: 07/07/24 09:40 Dose: 0.5 mg/min, 17.27 mls/hr Potassium Phosphate (Kphos) 15 mmol in 250 mls @ 62.5 mls/hr IV ONCE ONE Stop: 07/07/24 12:23 Last Admin: 07/07/24 08:44 Dose: 62.5 mls/hr Furosemide 200 mg/ Sodium (Chloride) 100 mls @ 2.5 mls/hr IVCONT .Q24H JORGE LUIS Naloxone HCl (Naloxone Hcl 0.4 Mg/Ml Vial) 0.2 mg IVPUSH Q2M PRN PRN Reason: Excessive sedation or RR < 8 Home Medications ?Medication ?Instructions ?Recorded ?Confirmed ?Last Taken ?Type acetaminophen 500 mg tablet 500 mg PO DAILY 07/06/24 07/06/24 07/05/24 History ibuprofen 200 mg tablet 600 mg PO DAILY 07/06/24 07/06/24 07/05/24 History methadone 10 mg/5 mL oral solution mg PO 07/06/24 Unknown History Physical Exam 2 Vital Signs: Vital Signs: Last Vital Signs Temp 100.0 F 07/07/24 11:59 Pulse 87 07/07/24 11:59 Resp 25 H 07/07/24 11:59 BP 113/59 L 07/07/24 11:59 Pulse Ox 90 L 07/07/24 11:59 O2 Del Method Mechanical Ventil ation 07/07/24 11:59 FiO2 100 07/07/24 11:59 BMI result Body Mass Index 47.8 Neuro: Other: He was off sedation. There was no response to verbal or painful stimuli. There was no abnormal posturing. Pupils were midline and nonreactive. I was unable to move his eyes with oculocephalic maneuver or with cold water calorics. Gag reflex was absent. Corneal reflex was absent. Deep tendon reflexes were absent with flexor plantars. Results Labs 07/07/24 05:10 07/07/24 05:21 Labs: Short CBC 07/06/24 07/07/24 Range/Units 16:16 05:10 WBC 19.7 H 14.7 H (4.8-10.8) X10*3/uL Hgb 14.0 14.1 (14.0-18.0) g/dl Hct 42.7 41.1 L (42.0-52.0) % Plt Count 214 226 (160-400) X10*3/uL BMP 07/06/24 07/07/24 16:16 05:21 Sodium 124 L 121 L Potassium 4.5 4.5 Chloride 83 L 83 L Carbon Dioxide 26 26 BUN 15 22 H Creatinine 1.11 2.02 H Calcium 8.3 L D 8.0 L Liver Function 07/06/24 07/07/24 Range/Units 16:16 05:21 Total Bilirubin 2.1 H 1.1 H (0.0-1.0) mg/dL AST 1576 H 1670 H (5-37) U/L ALT 700 H 794 H (0-40) U/L Alkaline Phosphatase 205 H 189 H (39-117) U/L Albumin 2.9 L 2.6 L (3.5-5.0) g/dL Head CT revealed widespread areas of cortical loss of franco-white differentiation. Assessment and Plan (1) Anoxic brain injury: Status: Acute 43 years old man who unfortunately had cardiac arrest outside the hospital resulting in terminal anoxic injury to brain. His examination at this time did not reveal any cortical, brainstem or spinal signs. This examination at this time was consistent with facial brain anoxic injury. Procedures Date of Service Date of Service: 07/07/24
--- NOTE | 2024-07-07 12:29 | HO.WOUND ---
Wound Consult: Initial 43yr old Male? admitted to [facility] on 07/06/24 - See progress notes and H&P for detailed history.? Wound consult placed for Lower Legs, Feet , Coccyx and Skin Folds.? Patient is intubated and not clinically stable for reposition at this time. The coccyx was discussed with the direct care team - they report it appears as MASD and barrier cream have been applied. The lower legs are consistent with venous dermatitis baseline, there is red lower leg pigmentation noted, thickened scaling keratotic tissue noted over the gaiter areas - no open wounds noted, bilateral toes are noted for red abrasions. Etiology is unclear. They are difficult to assess given the thickened tissue but no overt wounds were noted, source of drainage is unclear at this time, recommend cleansing and barrier cream, if drainage occurs to cover with dry dressing. The skin folds are noted to be treated with interdry per nursing charting. Will attempt reassessment at future date and time. ? Recommendations: 1. Turn and Reposition every 2 hours and as needed for patient comfort.? Use pillows or wedges to support off loading positions. 2. Off Load all bony prominences with use of pillows and heel boots if needed.? Apply Preventative foams where needed. ? 3. Monitor for incontinence and moisture control, use barrier creams when needed for prevention and treatment. 4. Provide adequate and supplemental nutrition.? 5. Continue low air loss mattress. Currently on specialty ICU bed. 6. When applicable maintain blood glucose levels per Providers order. 7. Skin Folds - Routine cleansing, dry well. Tuck Interdry AG Sheet into skin fold to wick and translocate moisture away from skin fold.? Be sure to leave at least 2 inch of fabric exposed outside of skin fold.? Change after 5 days or when soiled. 8. Coccyx / buttock - Off Load Pressure - Cleanse with PH balance spray or wipes, pat dry. ?Apply thin layer of Triad to wound bed - only pat and dab no scrub and rub when soiling occurs. Reapply thin layer PRN after each episode of incontinence. 9. Bilateral Feet - Cleanse with [place]illian, wipe clean and dry well. Apply barrier to macerated areas - if drainage observed or noted may dressing with gauze, abd pad and wrap. Continue to off load heels in heel boot protectors. Re-consult wound care Nurse for wound deterioration or wound changes.
[2024-07-07 12:48] LABS: Anion Gap 16 (12-20); Blood Urea Nitrogen 26 mg/dL (9-16); Calcium 8.6 mg/dL (8.4-10.2); Carbon Dioxide 26 mmol/L (22-29); Chloride 85 mmol/L (96-108); Creatinine Clr Calc Pharmacy 57.5; Estimated Glomerular Filt Rate 28; Glucose Random 104 mg/dL (60-115); Potassium 4.4 mmol/L (3.3-5.1); Sodium 123 mmol/L (135-145)
[2024-07-07] MEDS: Furosemide 200 MG in 0.9 % Sodium Chloride 80 ML IVCONT (13:00)
[2024-07-07] MEDS: Sodium Bicarbonate 8.4% 150 MEQ in Dextrose 5 % 850 ML 50 MEQ IV (14:32)
[2024-07-07 18:47] LABS: Anion Gap 18 (12-20); Blood Urea Nitrogen 26 mg/dL (9-16); Calcium 8.3 mg/dL (8.4-10.2); Carbon Dioxide 26 mmol/L (22-29); Chloride 83 mmol/L (96-108); Creatinine Clr Calc Pharmacy 52.6; Estimated Glomerular Filt Rate 26; Glucose Random 107 mg/dL (60-115); Phosphorus 3.7 mg/dL (2.7-4.5); Potassium 4.2 mmol/L (3.3-5.1); Sodium 123 mmol/L (135-145)
[2024-07-07] MEDS: Norepinephrine Bitartrate/D5W 8 MG/250 ML PLAST..BAG 26.27 MG IVCONT (20:26)
[2024-07-07 23:48] LABS: Anion Gap 18 (12-20); Blood Urea Nitrogen 25 mg/dL (9-16); Calcium 8.1 mg/dL (8.4-10.2); Carbon Dioxide 27 mmol/L (22-29); Chloride 83 mmol/L (96-108); Creatinine Clr Calc Pharmacy 47.5; Estimated Glomerular Filt Rate 23; Glucose Random 109 mg/dL (60-115); Potassium 4.6 mmol/L (3.3-5.1); Sodium 123 mmol/L (135-145)
[2024-07-08] VITALS (40 sets, daily range): BP systolic 105–142; BP diastolic 43–72; PULSE 85–95; RESP 25; TEMP 34.4–37.1; O2SAT 87–91; BMI 47.2
[2024-07-08] MEDS: Calcium Chloride 1 GM/10 ML SYRINGE IVPUSH (03:06)
[2024-07-08] MEDS: Albumin Human 25 % 100 ML IV ×2 (03:27→07:52)
[2024-07-08] MEDS: Heparin Sodium,Porcine 5,000 UNIT/ML VIAL 5000 UNIT SUBCUT ×2 (04:21→12:02)
[2024-07-08 05:12] LABS: MANUAL DIFF FLAG NO
[2024-07-08 05:13] LABS: Basophils Absolute Auto 0.1 X10*3/uL (0.0-0.2); Basophils Percent Auto 0.7 % (0-2); Eosinophils Absolute Auto 0.1 X10*3/uL (0.0-0.4); Eosinophils Percent Auto 1.2 % (0-4); Hematocrit 40.9 % (42.0-52.0); Hemoglobin 13.7 g/dl (14.0-18.0); Imm Gran Abs Auto 0.11 X10*3/uL (0.00-0.03); Imm Gran Pct Auto 0.9 % (0.0-0.4); Lymphocytes Percent Auto 8.7 % (20-40); Mean Corpuscular HGB Conc 33.5 g/dl (31.0-36.0); Mean Corpuscular Hemoglobin 32.2 pg (27.0-33.0); Mean Platelet Volume 10.6 fL (9.4-12.4); Monocytes Absolute Auto 0.6 X10*3/uL (0.1-1.2); Monocytes Percent Auto 5.4 % (2-11); NRBC Pct Auto 0.3 /100WBC (0.0-0.2); Neutrophils Absolute Auto 9.8 x10*3/uL (2.0-8.3); Neutrophils Percent Auto 83.1 % (45-73); Platelet Count 149 X10*3/uL (160-400); Red Blood Count 4.26 X10*6/uL (4.60-5.80); Red Cell Distribution Width 17.2 % (11.0-16.0); White Blood Count 11.8 X10*3/uL (4.8-10.8)
[2024-07-08 05:31] LABS: Anion Gap 20 (12-20); Blood Urea Nitrogen 26 mg/dL (9-16); Calcium 8.6 mg/dL (8.4-10.2); Carbon Dioxide 27 mmol/L (22-29); Chloride 81 mmol/L (96-108); Creatinine Clr Calc Pharmacy 44.4; Estimated Glomerular Filt Rate 21; Glucose Random 108 mg/dL (60-115); Phosphorus 3.8 mg/dL (2.7-4.5); Potassium 4.7 mmol/L (3.3-5.1); Sodium 123 mmol/L (135-145)
[2024-07-08] MEDS: Norepinephrine Bitartrate/D5W 8 MG/250 ML PLAST..BAG 20.44 MG IVCONT (06:19)
[2024-07-08] MEDS: Chlorhexidine Gluc Oral Rinse 15 ML MOUTHWASH BUCCAL ×2 (07:51→20:43)
[2024-07-08] MEDS: Famotidine/PF 20 MG/2 ML VIAL IVPUSH (07:51)
--- NOTE | 2024-07-08 08:08 | PC.NURSE ---
Assumed care at 0700. This RN and CCT at bedside - new pad placed under patient requiring 2 max person assist. SPO2 down to as low as 71% with this activity on 100% Fio2 - patient placed back in fowlers position and RT Naveed called to bedside - Spo2 increased to 87-88% and maintaining after approximately 5-6mins of BMV by RT. Cuff pressure checked and adjusted by RT. MD notified of this event. Care ongoing.
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
--- NOTE | 2024-07-08 09:25 | MHC.CLN ---
F/U PT IS INTUBATED AND SEDATED PT IS OBESE FOR HT CURRENTLY NPO IF TF NEEDED; CONSULT RD FOLLOWING WITH TEAM; WILL PROVIDE SUPPORT NEEDED
[2024-07-08] MEDS: Sodium Bicarbonate 8.4% 150 MEQ in Dextrose 5 % 850 ML 50 MEQ IV (09:48)
[2024-07-08] MEDS: Amiodarone HCL 900 MG in 0.9 % Sodium Chloride 500 ML 17.27 MG IVCONT (09:56)
--- NOTE | 2024-07-08 12:39 | W.MHC.ACPN ---
Advanced Care Planning Note Advanced Care Planning Note Discussed with: family member(s) Time spent (in minutes): 30 Narrative: Mr. Fenton's mother and aunt were present at his bedside this morning. I offered updates and clarifications regarding Mr. Fenton's emergency department and ICU course. We discussed Mr. Fenton's profound neurological injury, with two neurological exams consistent with brain . We discussed that he is otherwise too critically ill to perform an apnea test nor be transported to the CT scanner for a CT angiogram of the head and neck, and thus, we may not be able to declare Mr. Fenton officially brain . Mrs. Fenton expressed understanding of this, and also feels that Mr. Fenton is no longer the person that he was before. Mrs. Fenton felt that Mr. Fenton would not want to be kept on life support and feels that this is additional suffering. Mrs. Fenton has decided to transition Mr. Fenton to comfort-focused care at this time. Of note, Mrs. Fenton has been reached out to by [facility], and it appears that in their preliminary conversation, Mrs. Fenton would not want to donate Mr. Fenton's organs. I did not engage further on the matter of organ donation. The [facility] passenger representative currently in the ICU stated that a [facility] psychiatric social worker supervisor will be arriving to the ICU to discuss with Mrs. eFnton. In the meantime, the plan for comfort-focused care was discussed with the ICU team and comfort-care orders were placed. Mrs. Fenton was offered post office markup clerk services, though deferred. Problems Discussed (1) Anoxic brain injury: (2) Cardiac arrest:
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
[2024-07-08] MEDS: Norepinephrine Bitartrate/D5W 8 MG/250 ML PLAST..BAG 14.39 MG IVCONT ×2 (13:35→23:17)
--- NOTE | 2024-07-08 13:50 | P.CDIM_ITS ---
PROVIDER RESPONSE TEXT: To clarify, the appropriate diagnosis supported by the clinical indicators: Acute lactic acidosis: Probable QUERY TEXT: PHYSICIAN'S DOCUMENTATION REQUEST Date of Query: 07/07/2024 11:40 AM EST Patient Name: Lv Lipscomb Admit Date: 07/06/[address] Guerra, A review of the medical record indicates additional documentation may be needed. Please review below and update the documentation accordingly. Clinical Indicators: LABS: lactic acid 12.5 H 6.4 H ED - elevated lactate I think it is unlikely this is indicative of sepsis. Based on the above, is there a diagnosis that correlates with these lab findings: Acute lactic acidosis possible, probable, suspected etc. Labs indicate a diagnosis of (please specify) Other (explain) Clinically unable to determine (explain) Thank you, Jennifer Grijalva, CCS, CDIS Use of terms such as suspected, likely, concern for, or probable (associated with a specific diagnosi s that is being evaluated, monitored, or treated as if it exists) are acceptable and can be coded in the inpatient se tting, when documented at the time of discharge. Please use your independent medical judgment in providing your response. THIS QUERY IS PART OF THE PERMANENT MEDICAL RECORD
[2024-07-08 15:06] LABS: MANUAL DIFF FLAG NO
[2024-07-08 15:09] LABS: Basophils Absolute Auto 0.1 X10*3/uL (0.0-0.2); Basophils Percent Auto 0.4 % (0-2); Eosinophils Absolute Auto 0.2 X10*3/uL (0.0-0.4); Eosinophils Percent Auto 1.7 % (0-4); Hematocrit 38.8 % (42.0-52.0); Imm Gran Abs Auto 0.11 X10*3/uL (0.00-0.03); Imm Gran Pct Auto 0.9 % (0.0-0.4); Lymphocytes Percent Auto 8.5 % (20-40); Mean Corpuscular HGB Conc 33.5 g/dl (31.0-36.0); Mean Corpuscular Hemoglobin 32.5 pg (27.0-33.0); Monocytes Absolute Auto 0.8 X10*3/uL (0.1-1.2); Monocytes Percent Auto 6.3 % (2-11); NRBC Pct Auto 0.2 /100WBC (0.0-0.2); Neutrophils Percent Auto 82.2 % (45-73); Platelet Count 145 X10*3/uL (160-400); Red Cell Distribution Width 17.2 % (11.0-16.0); White Blood Count 12.2 X10*3/uL (4.8-10.8)
[2024-07-08 15:13] LABS: Fibrinogen 589 MG/DL (259-690)
[2024-07-08 15:15] LABS: D Dimer High Sensitivity 759 NG/ML
[2024-07-08 15:29] LABS: Albumin Level 2.9 g/dL (3.5-5.0); Anion Gap 18 (12-20); Aspartate Amino Transferase 570 U/L (5-37); Bilirubin Total 1.3 mg/dL (0.0-1.0); Blood Urea Nitrogen 29 mg/dL (9-16); Calcium 8.4 mg/dL (8.4-10.2); Carbon Dioxide 29 mmol/L (22-29); Chloride 81 mmol/L (96-108); Creatinine Clr Calc Pharmacy 38.5; Estimated Glomerular Filt Rate 18; Glucose Random 101 mg/dL (60-115); Magnesium 1.9 mg/dL (1.6-2.6); Sodium 123 mmol/L (135-145); Total Protein 5.1 g/dL (6.5-8.0)
[2024-07-08 15:32] LABS: Alanine Aminotransferase 547 U/L (0-40); Alkaline Phosphatase 165 U/L (39-117)
[2024-07-08 18:17] LABS: ABG Base Excess 5.8 mmol/L; ABG HCO3 32 mmol/L (22-26); ABG pCO2 55 mmHg (32-45); ABG pH 7.37 (7.35-7.45); ABG pO2 61 mmHg (83-108)
[2024-07-08 18:19] LABS: MANUAL DIFF FLAG NO
[2024-07-08 18:22] LABS: Eosinophils Absolute Auto 0.2 X10*3/uL (0.0-0.4); Mean Corpuscular HGB Conc 33.3 g/dl (31.0-36.0); Mean Corpuscular Hemoglobin 32.3 pg (27.0-33.0); Mean Corpuscular Volume 96.8 fL (80.0-98.0); NRBC Pct Auto 0.2 /100WBC (0.0-0.2); PLT CLUMP 1; SCAN SMEAR FLAG 1
[2024-07-08 18:24] LABS: Basophils Absolute Auto 0.1 X10*3/uL (0.0-0.2); Basophils Percent Auto 0.4 % (0-2); Eosinophils Percent Auto 1.4 % (0-4); Imm Gran Abs Auto 0.12 X10*3/uL (0.00-0.03); Mean Platelet Volume 10.7 fL (9.4-12.4); Monocytes Absolute Auto 0.8 X10*3/uL (0.1-1.2); Monocytes Percent Auto 6.7 % (2-11); Neutrophils Absolute Auto 10.3 x10*3/uL (2.0-8.3); Neutrophils Percent Auto 82.5 % (45-73); Red Blood Count 4.03 X10*6/uL (4.60-5.80); Red Cell Distribution Width 17.2 % (11.0-16.0)
[2024-07-08 18:25] LABS: Platelet Count 150 X10*3/uL (160-400); White Blood Count 12.5 X10*3/uL (4.8-10.8)
[2024-07-08 18:28] LABS: Appearance Urine Cloudy; Color Urine Yellow; Glucose Urine UA 100 mg/dL (Negative); Leukocyte Esterase Urine Trace (Negative); Nitrite Urine Negative (Negative); UMIC TRIGGER UACC YES; Urine Blood Large (3+) (Negative); Urine Ketones Negative (Negative); Urine Protein 300 (3+) mg/dL (Neg-Trace)
[2024-07-08 18:30] LABS: Bacteria Urine None Seen (None Seen); UACC Culture Trigger YES
[2024-07-08 18:32] LABS: Fibrinogen 601 MG/DL (259-690)
[2024-07-08 18:34] LABS: D Dimer High Sensitivity 728 NG/ML
[2024-07-08 18:38] LABS: Amylase 86 U/L (28-100)
[2024-07-08 18:45] LABS: Lactic Acid 1.5 mmol/L (0.5-2.0)
[2024-07-08 18:47] LABS: Alanine Aminotransferase 539 U/L (0-40); Albumin Level 2.9 g/dL (3.5-5.0); Alkaline Phosphatase 168 U/L (39-117); Anion Gap 16 (12-20); Aspartate Amino Transferase 538 U/L (5-37); Bilirubin Direct 0.8 mg/dL (0.0-0.5); Bilirubin Total 1.3 mg/dL (0.0-1.0); Blood Urea Nitrogen 30 mg/dL (9-16); Calcium 8.5 mg/dL (8.4-10.2); Carbon Dioxide 31 mmol/L (22-29); Chloride 81 mmol/L (96-108); Creatinine Clr Calc Pharmacy 37.8; Estimated Glomerular Filt Rate 18; Glucose Random 94 mg/dL (60-115); Lipase 17 U/L (8-78); Magnesium 1.9 mg/dL (1.6-2.6); Phosphorus 3.5 mg/dL (2.7-4.5); Potassium 5.1 mmol/L (3.3-5.1); Sodium 123 mmol/L (135-145); Total Protein 5.2 g/dL (6.5-8.0)
[2024-07-08 18:50] LABS: COVID-19 Test Invalid (Negative); IDNOW Serial# 152EDE1D
[2024-07-08 19:04] LABS: Troponin-I High Sensitivity 2293.2 ng/L (<3.5-35.0)
[2024-07-08 19:16] LABS: COVID-19 Test Negative (Negative); IDNOW Serial# 58CA691E
[2024-07-09] VITALS (36 sets, daily range): BP systolic 73–118; BP diastolic 43–64; PULSE 86–97; RESP 25; TEMP 35–37; O2SAT 85–92; BMI 46.9
[2024-07-09 00:24] LABS: ABG Refer to POC result
[2024-07-09] MEDS: Albuterol/Iprat 2.5/0.5MG 3 ML AMPUL.NEB INHALE ×4 (00:42→19:35)
[2024-07-09] MEDS: Piperacillin Sodium/Tazobactam 4.5 GM in 0.9 % Sodium Chloride 100 ML IV ×3 (00:55→15:24)
[2024-07-09] MEDS: vancomycin/NS 2,000 MG/500 ML PLAST..BAG 250 MG IV (01:15)
[2024-07-09 05:11] LABS: Amylase 50 U/L (28-100); Lipase 16 U/L (8-78)
[2024-07-09 05:12] LABS: Lactic Acid 1.7 mmol/L (0.5-2.0)
[2024-07-09 05:47] LABS: VBG Base Excess 7.3 mmol/L; VBG HCO3 34 mmol/L (22-26); VBG pCO2 58 mmHg; VBG pH 7.37 (7.32-7.43); VBG pO2 40 mmHg
[2024-07-09 05:49] LABS: MANUAL DIFF FLAG NO
[2024-07-09 06:05] LABS: Alanine Aminotransferase 442 U/L (0-40); Albumin Level 2.5 g/dL (3.5-5.0); Alkaline Phosphatase 163 U/L (39-117); Aspartate Amino Transferase 398 U/L (5-37); Bilirubin Total 1.5 mg/dL (0.0-1.0); Magnesium 1.9 mg/dL (1.6-2.6); Total Protein 4.8 g/dL (6.5-8.0)
[2024-07-09 06:10] LABS: Alanine Aminotransferase 441 U/L (0-40); Albumin Level 2.5 g/dL (3.5-5.0); Alkaline Phosphatase 165 U/L (39-117); Anion Gap 17 (12-20); Aspartate Amino Transferase 397 U/L (5-37); Bilirubin Total 1.5 mg/dL (0.0-1.0); Blood Urea Nitrogen 32 mg/dL (9-16); Calcium 8.2 mg/dL (8.4-10.2); Carbon Dioxide 29 mmol/L (22-29); Chloride 81 mmol/L (96-108); Estimated Glomerular Filt Rate 15; Glucose Random 85 mg/dL (60-115); Phosphorus 2.9 mg/dL (2.7-4.5); Potassium 5.3 mmol/L (3.3-5.1); Sodium 122 mmol/L (135-145); Total Protein 4.8 g/dL (6.5-8.0)
[2024-07-09 06:22] LABS: Fibrinogen 611 MG/DL (259-690); INTERNATIONAL NORM RATIO 1.1 (0.9-1.1); Prothrombin Time 12.9 SEC (10.9-12.4)
[2024-07-09 06:24] LABS: D Dimer High Sensitivity 710 NG/ML
[2024-07-09 06:33] LABS: Basophils Absolute Auto 0.1 X10*3/uL (0.0-0.2); Basophils Percent Auto 0.5 % (0-2); Eosinophils Absolute Auto 0.3 X10*3/uL (0.0-0.4); Eosinophils Percent Auto 2.4 % (0-4); Hematocrit 36.9 % (42.0-52.0); Hemoglobin 12.5 g/dl (14.0-18.0); Imm Gran Abs Auto 0.23 X10*3/uL (0.00-0.03); Imm Gran Pct Auto 1.8 % (0.0-0.4); Lymphocytes Absolute Auto 1.1 X10*3/uL (1.2-4.9); Lymphocytes Percent Auto 8.4 % (20-40); Mean Corpuscular HGB Conc 33.9 g/dl (31.0-36.0); Mean Corpuscular Hemoglobin 32.6 pg (27.0-33.0); Mean Corpuscular Volume 96.3 fL (80.0-98.0); Mean Platelet Volume 10.5 fL (9.4-12.4); Monocytes Absolute Auto 0.9 X10*3/uL (0.1-1.2); NRBC Pct Auto 0.2 /100WBC (0.0-0.2); Neutrophils Absolute Auto 10.3 x10*3/uL (2.0-8.3); Neutrophils Percent Auto 79.9 % (45-73); Platelet Count 141 X10*3/uL (160-400); Red Blood Count 3.83 X10*6/uL (4.60-5.80); Red Cell Distribution Width 17.3 % (11.0-16.0); White Blood Count 12.8 X10*3/uL (4.8-10.8)
[2024-07-09] MEDS: Pantoprazole Sodium 40 MG/10 ML VIAL IVPUSH (06:37)
[2024-07-09 06:55] LABS: Appearance Urine Clear; Color Urine Yellow; Glucose Urine UA Negative (Negative); Leukocyte Esterase Urine Negative (Negative); Nitrite Urine Negative (Negative); UMIC TRIGGER UACC YES; Urine Blood Large (3+) (Negative); Urine Ketones Negative (Negative); Urine Protein 300 (3+) mg/dL (Neg-Trace)
[2024-07-09 07:16] LABS: Bacteria Urine None Seen (None Seen); Hyaline Casts Urine 0-2 /LPF (0-2); RBC Urine >20 /HPF (0-2); UACC Culture Trigger YES
[2024-07-09 07:35] LABS: Estimated Average Glucose 108 mg/dL; Hemoglobin A1C 116.9874 umol/L; Hemoglobin A1c % 5.4 % (<6.0); Total Hemoglobin (HGBA1C) 3310.0033 umol/L
--- NOTE | 2024-07-09 07:35 | PHA.PROG ---
Admission Date/Time: July 06, 2024 12:49 Indication: OTHER Weight in k.4 kg Adjusted body weight in K.1 KG [place] body weight in Kg: Obesity Dosing Indication % IBW: 102 % OVER IBW Serum Creatinine - Last 168 Hours 07/06/24 07/06/24 07/07/24 10:50 16:16 05:21 Creatinine 0.81 1.11 2.02 H 07/07/24 07/07/24 07/07/24 12:29 18:03 23:29 Creatinine 2.49 H 2.72 H 3.01 H 07/08/24 07/08/24 07/08/24 04:59 14:59 18:09 Creatinine 3.22 H 3.69 H 3.75 H 07/09/24 05:43 Creatinine 4.30 H* Estimated CrCl and GFR - Last 168 Hours 07/06/24 07/06/24 07/07/24 10:50 16:16 05:21 Estim Creat Clear Calc 176.8 129.0 70.9 Estimated GFR > 60 > 60 36 07/07/24 07/07/24 07/07/24 12:29 18:03 23:29 Estim Creat Clear Calc 57.5 52.6 47.5 Estimated GFR 28 26 23 07/08/24 07/08/24 07/08/24 04:59 14:59 18:09 Estim Creat Clear Calc 44.4 38.5 37.8 Estimated GFR 21 18 18 07/09/24 05:43 Estim Creat Clear Calc 33.0 Estimated GFR 15 Vancomycin Loading Dose: 2000 MG Current Vancomycin Dosing Regimen: 750 MG Q 24 HOURS Vancomycin Monitoring using AUC goal of 400 - 600 range with trough as surrogate marker: Date and Time for next Vancomycin Level to be drawn: CHECK AFTER 2 DOSES FOR SAFETY Pharmacist Comments on Vancomycin Plan: USING OBESE MODEL, WILL CHECK RANDOM LEVEL AFTER 2 DOSES Vancomycin dosing will take advantage of [employer] as a clinical decision support tool that uses Bayesian modeling to calculate individual patient's pharmacokinetic parameters and forecast the patient's drug concentration time course with the target goal AUC 24 range of 400 - 600 mg/L/hr.
[2024-07-09] MEDS: Chlorhexidine Gluc Oral Rinse 15 ML MOUTHWASH BUCCAL ×3 (07:51→21:27)
[2024-07-09 08:43] LABS: Venous Blood Gas Refer to POC result
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
[2024-07-09 11:36] LABS: Partial Thromboplastin Time 38.8 SEC (26.0-36.8)
[2024-07-09 12:16] LABS: MANUAL DIFF FLAG NO
[2024-07-09 12:18] LABS: Basophils Absolute Auto 0.1 X10*3/uL (0.0-0.2); Basophils Percent Auto 0.5 % (0-2); Mean Platelet Volume 10.7 fL (9.4-12.4); PLT CLUMP 1; Red Cell Distribution Width 17.4 % (11.0-16.0); SCAN SMEAR FLAG 1; Venous Blood Gas Refer to POC result
[2024-07-09 12:19] LABS: Eosinophils Absolute Auto 0.3 X10*3/uL (0.0-0.4); Hematocrit 36.6 % (42.0-52.0); Hemoglobin 12.2 g/dl (14.0-18.0); Imm Gran Pct Auto 1.6 % (0.0-0.4); Lymphocytes Percent Auto 7.9 % (20-40); Mean Corpuscular HGB Conc 33.3 g/dl (31.0-36.0); Mean Corpuscular Hemoglobin 32.1 pg (27.0-33.0); Mean Corpuscular Volume 96.3 fL (80.0-98.0); NRBC Pct Auto 0.2 /100WBC (0.0-0.2); Neutrophils Absolute Auto 10.2 x10*3/uL (2.0-8.3)
[2024-07-09 12:19] LABS: VBG Base Excess 6.8 mmol/L; VBG HCO3 33 mmol/L (22-26); VBG pCO2 57 mmHg; VBG pH 7.37 (7.32-7.43); VBG pO2 48 mmHg
[2024-07-09 12:22] LABS: Platelet Count 137 X10*3/uL (160-400); White Blood Count 12.7 X10*3/uL (4.8-10.8)
[2024-07-09 12:25] LABS: Fibrinogen 637 MG/DL (259-690); INTERNATIONAL NORM RATIO 1.1 (0.9-1.1); Prothrombin Time 12.7 SEC (10.9-12.4)
[2024-07-09 12:27] LABS: D Dimer High Sensitivity 708 NG/ML
[2024-07-09 12:33] LABS: Alanine Aminotransferase 397 U/L (0-40); Albumin Level 2.4 g/dL (3.5-5.0); Alkaline Phosphatase 165 U/L (39-117); Aspartate Amino Transferase 340 U/L (5-37); Bilirubin Direct 1.1 mg/dL (0.0-0.5); Bilirubin Total 1.6 mg/dL (0.0-1.0); Magnesium 1.9 mg/dL (1.6-2.6); Total Protein 4.7 g/dL (6.5-8.0)
[2024-07-09 12:35] LABS: Alanine Aminotransferase 401 U/L (0-40); Albumin Level 2.4 g/dL (3.5-5.0); Alkaline Phosphatase 164 U/L (39-117); Anion Gap 14 (12-20); Aspartate Amino Transferase 343 U/L (5-37); Bilirubin Total 1.6 mg/dL (0.0-1.0); Blood Urea Nitrogen 33 mg/dL (9-16); Carbon Dioxide 30 mmol/L (22-29); Chloride 82 mmol/L (96-108); Creatinine Clr Calc Pharmacy 31.7; Estimated Glomerular Filt Rate 14; Glucose Random 85 mg/dL (60-115); Phosphorus 3.1 mg/dL (2.7-4.5); Potassium 5.4 mmol/L (3.3-5.1); Sodium 121 mmol/L (135-145); Total Protein 4.8 g/dL (6.5-8.0)
--- NOTE | 2024-07-09 13:41 | P.PNCC_ITS ---
Critical Care Event Note Summary Date of Service: 07/09/24 Code activated: No Narrative: ME Critical Care Time (minutes): 0
--- NOTE | 2024-07-09 13:41 | PM.CCN ---
Critical Care Event Note Summary Date of Service: 07/09/24 Code activated: No Narrative: ME Critical Care Time (minutes): 0
[2024-07-09] MEDS: Norepinephrine Bitartrate/D5W 8 MG/250 ML PLAST..BAG 14.39 MG IVCONT (16:05)
[2024-07-09 17:47] LABS: MANUAL DIFF FLAG NO
[2024-07-09 17:52] LABS: VBG Base Excess 4.5 mmol/L; VBG HCO3 33 mmol/L (22-26); VBG pCO2 72 mmHg; VBG pH 7.27 (7.32-7.43); VBG pO2 46 mmHg
[2024-07-09 17:52] LABS: Basophils Absolute Auto 0.1 X10*3/uL (0.0-0.2); Basophils Percent Auto 0.4 % (0-2); Eosinophils Absolute Auto 0.3 X10*3/uL (0.0-0.4); Eosinophils Percent Auto 2.2 % (0-4); Hematocrit 36.8 % (42.0-52.0); Hemoglobin 12.2 g/dl (14.0-18.0); Imm Gran Abs Auto 0.24 X10*3/uL (0.00-0.03); Imm Gran Pct Auto 1.7 % (0.0-0.4); Lymphocytes Absolute Auto 1.1 X10*3/uL (1.2-4.9); Mean Corpuscular HGB Conc 33.2 g/dl (31.0-36.0); Mean Corpuscular Hemoglobin 32.2 pg (27.0-33.0); Mean Corpuscular Volume 97.1 fL (80.0-98.0); Mean Platelet Volume 10.7 fL (9.4-12.4); Monocytes Absolute Auto 1.2 X10*3/uL (0.1-1.2); Monocytes Percent Auto 8.6 % (2-11); NRBC Pct Auto 0.2 /100WBC (0.0-0.2); Neutrophils Absolute Auto 11.1 x10*3/uL (2.0-8.3); Neutrophils Percent Auto 79.1 % (45-73); Platelet Count 140 X10*3/uL (160-400); Red Blood Count 3.79 X10*6/uL (4.60-5.80); Red Cell Distribution Width 17.7 % (11.0-16.0); White Blood Count 14.1 X10*3/uL (4.8-10.8)
[2024-07-09 17:53] LABS: Venous Blood Gas Refer to POC result
[2024-07-09 17:58] LABS: Amylase 37 U/L (28-100)
[2024-07-09 18:00] LABS: Fibrinogen 645 MG/DL (259-690); INTERNATIONAL NORM RATIO 1.1 (0.9-1.1); Prothrombin Time 12.5 SEC (10.9-12.4)
[2024-07-09 18:01] LABS: Fibrinogen 638 MG/DL (259-690)
[2024-07-09 18:03] LABS: D Dimer High Sensitivity 647 NG/ML
[2024-07-09 18:05] LABS: Lactic Acid 1.7 mmol/L (0.5-2.0)
[2024-07-09 18:09] LABS: Appearance Urine Clear; Color Urine Yellow; Glucose Urine UA Negative (Negative); Leukocyte Esterase Urine Trace (Negative); Nitrite Urine Negative (Negative); Specific Gravity - Urine 1.015 (1.005-1.025); UMIC TRIGGER UACC YES; Urine Blood Large (3+) (Negative); Urine Ketones Negative (Negative); Urine Protein 300 (3+) mg/dL (Neg-Trace)
[2024-07-09 18:16] LABS: Alanine Aminotransferase 379 U/L (0-40); Albumin Level 2.4 g/dL (3.5-5.0); Alkaline Phosphatase 172 U/L (39-117); Anion Gap 17 (12-20); Aspartate Amino Transferase 308 U/L (5-37); Bilirubin Direct 1.3 mg/dL (0.0-0.5); Bilirubin Total 1.8 mg/dL (0.0-1.0); Blood Urea Nitrogen 33 mg/dL (9-16); Calcium 8.1 mg/dL (8.4-10.2); Carbon Dioxide 30 mmol/L (22-29); Chloride 82 mmol/L (96-108); Creatinine Clr Calc Pharmacy 29.1; Estimated Glomerular Filt Rate 13; Glucose Random 87 mg/dL (60-115); Lipase 22 U/L (8-78); Magnesium 1.9 mg/dL (1.6-2.6); Phosphorus 3.6 mg/dL (2.7-4.5); Potassium 5.6 mmol/L (3.3-5.1); Sodium 123 mmol/L (135-145); Total Protein 4.8 g/dL (6.5-8.0)
[2024-07-09 18:23] LABS: Bacteria Urine None Seen (None Seen); Hyaline Casts Urine 0-2 /LPF (0-2); RBC Urine >20 /HPF (0-2); UACC Culture Trigger YES; WBC Urine 21-50 /HPF (0-5)
--- NOTE | 2024-07-09 19:14 | PC.NURSE ---
Assumed care of patient 0700. Pt is [facility] patient. Plan for collaboration with [facility] nurse for patient care. Vent settings PC 25/22/15.0/100% Pt given partial bed bath at 0900 with CHG wipes, indwelling catheter and kalpana care provided Micro turns used this shift due to instability of patient. Laboratories collected as ordered 12:00 and 18:00 15:00 SaO2 started to trend down from 89-90% to 86%. Inline suctioning with no improvement, scant secretions. notified. RT completed vent assessment for pt. 16:30 Pt had increase in levophed gtt needs. Titated up from 0.05 to 0.09 per protocol, see MAR. New urine CC 18:00 RN to RN report given, plan for OR at 08:00 tomorrow 07/10 with MAT
[2024-07-10] VITALS (15 sets, daily range): BP systolic 104–136; BP diastolic 53–72; PULSE 89–94; RESP 28; TEMP 35.1–37; O2SAT 82–86; BMI 47.2
[2024-07-10] LABS: VBG Base Excess 2.9 mmol/L; VBG HCO3 32 mmol/L (22-26); VBG pCO2 71 mmHg; VBG pH 7.26 (7.32-7.43); VBG pO2 41 mmHg
[2024-07-10 00:14] LABS: Fibrinogen 670 MG/DL (259-690); INTERNATIONAL NORM RATIO 1.1 (0.9-1.1); Prothrombin Time 12.6 SEC (10.9-12.4)
[2024-07-10 00:19] LABS: Alanine Aminotransferase 357 U/L (0-40); Albumin Level 2.4 g/dL (3.5-5.0); Alkaline Phosphatase 178 U/L (39-117); Anion Gap 17 (12-20); Aspartate Amino Transferase 284 U/L (5-37); Bilirubin Total 1.9 mg/dL (0.0-1.0); Blood Urea Nitrogen 34 mg/dL (9-16); Calcium 8.3 mg/dL (8.4-10.2); Carbon Dioxide 29 mmol/L (22-29); Chloride 82 mmol/L (96-108); Creatinine Clr Calc Pharmacy 27.5; Estimated Glomerular Filt Rate 12; Glucose Random 86 mg/dL (60-115); Phosphorus 4.2 mg/dL (2.7-4.5); Potassium 5.8 mmol/L (3.3-5.1); Sodium 122 mmol/L (135-145)
[2024-07-10] MEDS: Piperacillin Sodium/Tazobactam 4.5 GM in 0.9 % Sodium Chloride 100 ML IV ×2 (00:20→07:24)
[2024-07-10] MEDS: Dextrose 10 % 250 ML 750 ML IV (00:41)
[2024-07-10] MEDS: Norepinephrine Bitartrate/D5W 8 MG/250 ML PLAST..BAG 43.17 MG IVCONT ×2 (00:44→06:10)
[2024-07-10] MEDS: Insulin Regular, Human 100 UNIT/ML 10 ML VIAL IVPUSH (00:53)
[2024-07-10 00:59] LABS: MANUAL DIFF FLAG NO
[2024-07-10 01:02] LABS: Basophils Absolute Auto 0.1 X10*3/uL (0.0-0.2); Basophils Percent Auto 0.5 % (0-2); Eosinophils Absolute Auto 0.3 X10*3/uL (0.0-0.4); Hematocrit 37.6 % (42.0-52.0); Hemoglobin 12.3 g/dl (14.0-18.0); Imm Gran Abs Auto 0.42 X10*3/uL (0.00-0.03); Imm Gran Pct Auto 2.8 % (0.0-0.4); Lymphocytes Absolute Auto 1.1 X10*3/uL (1.2-4.9); Lymphocytes Percent Auto 7.6 % (20-40); Mean Corpuscular HGB Conc 32.7 g/dl (31.0-36.0); Mean Corpuscular Hemoglobin 31.9 pg (27.0-33.0); Mean Corpuscular Volume 97.4 fL (80.0-98.0); Mean Platelet Volume 11.1 fL (9.4-12.4); Monocytes Absolute Auto 1.5 X10*3/uL (0.1-1.2); Monocytes Percent Auto 9.9 % (2-11); NRBC Pct Auto 0.2 /100WBC (0.0-0.2); Neutrophils Absolute Auto 11.4 x10*3/uL (2.0-8.3); Neutrophils Percent Auto 77.2 % (45-73); Platelet Count 141 X10*3/uL (160-400); Red Blood Count 3.86 X10*6/uL (4.60-5.80); Red Cell Distribution Width 17.7 % (11.0-16.0); White Blood Count 14.8 X10*3/uL (4.8-10.8)
[2024-07-10 01:08] LABS: Glucose, Whole Blood 138 mg/dL (60-115)
[2024-07-10 01:09] LABS: D Dimer High Sensitivity 618 NG/ML
[2024-07-10 01:13] LABS: Alanine Aminotransferase 347 U/L (0-40); Albumin Level 2.4 g/dL (3.5-5.0); Alkaline Phosphatase 181 U/L (39-117); Aspartate Amino Transferase 276 U/L (5-37); Bilirubin Direct 1.5 mg/dL (0.0-0.5); Bilirubin Total 1.9 mg/dL (0.0-1.0); Magnesium 1.9 mg/dL (1.6-2.6); Total Protein 4.8 g/dL (6.5-8.0)
[2024-07-10 01:59] LABS: Glucose, Whole Blood 100 mg/dL (60-115)
[2024-07-10 03:31] LABS: Venous Blood Gas Refer to POC result
[2024-07-10 05:12] LABS: VBG Base Excess 3.5 mmol/L; VBG HCO3 32 mmol/L (22-26); VBG pCO2 69 mmHg; VBG pH 7.27 (7.32-7.43); VBG pO2 39 mmHg
[2024-07-10] MEDS: Pantoprazole Sodium 40 MG/10 ML VIAL IVPUSH (05:38)
[2024-07-10 05:58] LABS: Basophils Absolute Auto 0.1 X10*3/uL (0.0-0.2); Basophils Percent Auto 0.6 % (0-2); Eosinophils Absolute Auto 0.3 X10*3/uL (0.0-0.4); Eosinophils Percent Auto 2.2 % (0-4); Hematocrit 38.1 % (42.0-52.0); Hemoglobin 12.4 g/dl (14.0-18.0); Imm Gran Abs Auto 0.43 X10*3/uL (0.00-0.03); Imm Gran Pct Auto 2.8 % (0.0-0.4); Lymphocytes Absolute Auto 1.2 X10*3/uL (1.2-4.9); Lymphocytes Percent Auto 7.6 % (20-40); MANUAL DIFF FLAG SCAN; Mean Corpuscular HGB Conc 32.5 g/dl (31.0-36.0); Mean Corpuscular Volume 98.2 fL (80.0-98.0); Mean Platelet Volume 10.5 fL (9.4-12.4); Monocytes Absolute Auto 1.7 X10*3/uL (0.1-1.2); Monocytes Percent Auto 11.2 % (2-11); Neutrophils Absolute Auto 11.5 x10*3/uL (2.0-8.3); Neutrophils Percent Auto 75.6 % (45-73); Platelet Count 136 X10*3/uL (160-400); Red Blood Count 3.88 X10*6/uL (4.60-5.80); Red Cell Distribution Width 17.5 % (11.0-16.0); SCAN SMEAR FLAG 1; White Blood Count 15.2 X10*3/uL (4.8-10.8)
[2024-07-10 06:02] LABS: Fibrinogen 694 MG/DL (259-690); Prothrombin Time 12.2 SEC (10.9-12.4)
[2024-07-10 06:04] LABS: D Dimer High Sensitivity 616 NG/ML
[2024-07-10 06:08] LABS: Lactic Acid 1.7 mmol/L (0.5-2.0)
[2024-07-10 06:13] LABS: Alanine Aminotransferase 331 U/L (0-40); Albumin Level 2.4 g/dL (3.5-5.0); Alkaline Phosphatase 188 U/L (39-117); Anion Gap 20 (12-20); Aspartate Amino Transferase 270 U/L (5-37); Bilirubin Total 2.3 mg/dL (0.0-1.0); Blood Urea Nitrogen 35 mg/dL (9-16); Calcium 8.3 mg/dL (8.4-10.2); Carbon Dioxide 29 mmol/L (22-29); Chloride 80 mmol/L (96-108); Creatinine Clr Calc Pharmacy 27.2; Estimated Glomerular Filt Rate 12; Glucose Random 84 mg/dL (60-115); Potassium 5.7 mmol/L (3.3-5.1); Sodium 123 mmol/L (135-145)
[2024-07-10 06:14] LABS: Amylase 32 U/L (28-100); Bilirubin Direct 1.7 mg/dL (0.0-0.5); Lipase 24 U/L (8-78); Magnesium 1.8 mg/dL (1.6-2.6)
[2024-07-10 06:20] LABS: SLIDE REVIEW VERIFIED
[2024-07-10 06:30] LABS: Venous Blood Gas Refer to POC result
[2024-07-10] MEDS: Chlorhexidine Gluc Oral Rinse 15 ML MOUTHWASH BUCCAL (07:24)
[2024-07-10] MEDS: Albuterol/Iprat 2.5/0.5MG 3 ML AMPUL.NEB INHALE (07:32)
[2024-07-10] MEDS: Heparin Sodium,Porcine 5,000 UNIT/ML VIAL 30000 UNIT IVPUSH (10:23)
[2024-07-10] MEDS: fentaNYL citrate/PF 100 MCG/2 ML VIAL IVPUSH (10:27)
[2024-07-10] MEDS: Midazolam HCl/PF 2 MG/2 ML VIAL IVPUSH (10:27)
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
== END 2024-07-10 10:51 | disposition expired | DRG 308 ==
LOC: HO.ED 14:01 → HO.EDOVER 14:01 → HO.ICU 14:06
PROVIDERS: Internal Medicine Critical Care Medicine; Registered Nurse Community Health; Admitting Provider Internal Medicine Pulmonary Disease; Emergency Provider Emergency Medicine; Visit Provider Internal Medicine Pulmonary Disease
DX: I47.21 Torsades de pointes (principal); J96.01 Acute respiratory failure with hypoxia; K72.00 Acute and subacute hepatic failure without coma; G93.1 Anoxic brain damage, not elsewhere classified; E87.1 Hypo-osmolality and hyponatremia; F11.20 Opioid dependence, uncomplicated; G82.20 Paraplegia, unspecified; N17.9 Acute kidney failure, unspecified; Z68.42 Body mass index [BMI] 45.0-49.9, adult; Z51.5 Encounter for palliative care; R57.8 Other shock; Z66 Do not resuscitate; W34.00XS Accidental discharge from unspecified firearms or gun, sequela; I50.810 Right heart failure, unspecified; E66.9 Obesity, unspecified; G89.4 Chronic pain syndrome; I46.2 Cardiac arrest due to underlying cardiac condition; D69.6 Thrombocytopenia, unspecified; Z20.822 Contact with and (suspected) exposure to COVID-19
CPT/HCPCS: 36415; 36600; 70450; 71045; 71275; 76700; 80048; 80053; 80076; 80307; 81001; 82150; 82248; 82550; 82565; 82803; 82947; 83036; 83605; 83690; 83735; 83880; 84100; 84484; 85007; 85025; 85027; 85379; 85384; 85610; 85730; 86850; 86900; 86901; 86923; 87040; 87086; 87635; 88307; 88313; 88331; 93005; 93306; 94002; 94003; 94640; 94799; 99284; C1758; J0131; J0171; J0282; J1644; J1940; J2003; J2250; J2251; J2310; J2470; J2543; J2704; J3010; J3370; J3475; J7120; P9047; Q9967

== ENCOUNTER → 2024-07-06 10:33 | Outpatient (BNV) | payer OTHER, SELFPAY | PROVIDERS: Admitting Provider Internal Medicine Pulmonary Disease; Emergency Provider Emergency Medicine; Visit Provider Internal Medicine Cardiovascular Disease | DX: R94.31 Abnormal electrocardiogram [ECG] [EKG] (principal) | CPT/HCPCS: 93010 ==

== ENCOUNTER → 2024-07-06 11:12 | Outpatient (BNV) | payer OTHER, SELFPAY | PROVIDERS: Admitting Provider Internal Medicine Pulmonary Disease; Emergency Provider Emergency Medicine; Visit Provider Radiology Diagnostic Radiology | DX: I46.9 Cardiac arrest, cause unspecified (principal) | CPT/HCPCS: 71045; 71275 ==

== ENCOUNTER 2024-07-06 12:49 | Outpatient (BNV) | payer OTHER, SELFPAY | END 2024-07-07 07:00 | PROVIDERS: Admitting Provider Internal Medicine Pulmonary Disease; Emergency Provider Emergency Medicine; Visit Provider Internal Medicine Cardiovascular Disease | DX: R94.31 Abnormal electrocardiogram [ECG] [EKG] (principal) | CPT/HCPCS: 93010 ==

== ENCOUNTER → 2024-07-06 12:49 | Outpatient (BNV) | payer OTHER, SELFPAY | PROVIDERS: Admitting Provider Internal Medicine Pulmonary Disease; Emergency Provider Emergency Medicine; Visit Provider Internal Medicine Critical Care Medicine | DX: G93.1 Anoxic brain damage, not elsewhere classified (principal); I46.9 Cardiac arrest, cause unspecified | CPT/HCPCS: 99291; 99499 ==

== ENCOUNTER → 2024-07-06 12:49 | Outpatient (BNV) | payer OTHER, SELFPAY | PROVIDERS: Admitting Provider Internal Medicine Pulmonary Disease; Emergency Provider Emergency Medicine; Visit Provider Internal Medicine Pulmonary Disease | DX: G93.1 Anoxic brain damage, not elsewhere classified (principal); I46.9 Cardiac arrest, cause unspecified; I50.810 Right heart failure, unspecified; J96.01 Acute respiratory failure with hypoxia; K72.00 Acute and subacute hepatic failure without coma; N17.9 Acute kidney failure, unspecified | CPT/HCPCS: 99238; 99291; 99292; 99499 ==

== ENCOUNTER → 2024-07-06 12:49 | Outpatient (BNV) | payer OTHER, SELFPAY | PROVIDERS: Admitting Provider Internal Medicine Pulmonary Disease; Emergency Provider Emergency Medicine; Visit Provider Psychiatry & Neurology Neurology | DX: G93.1 Anoxic brain damage, not elsewhere classified (principal) | CPT/HCPCS: 99222 ==